=== PATIENT | male | born 1995 | race Two or more races ===

== ENCOUNTER 2018-01-10 15:53 | Emergency (ER) | payer MEDICAID, OTHER ==
[~2018-01-10] VITALS: Ht 165.1 cm; Wt 68.0 kg
[2018-01-10] MEDS ORDERED: LEVETIRACETAM INJ 500 MG in D5W 5% 100 ML IV ONE (17:00)
[2018-01-10 18:24] VITALS: BP 140/84
[2018-01-10 18:27] LABS: Basophils # (auto) 0.1 uL; Basophils % (auto) 0.5 % (0.0-2.0); Eosinophils # (auto) 0.1 uL; Eosinophils % (auto) 0.7 % (0.0-7.0); Hematocrit 50.1 % (41.0-53.0); Hemoglobin 17.2 g/dL (13.5-17.5); Lymphocytes # (auto) 0.7 uL; Lymphocytes % (auto) 4.9 % (10.0-50.0); Mean Corpuscular Hemoglobin 32.6 pg (28.0-32.0); Mean Corpuscular Hgb Conc. 34.3 g/dL (32.0-36.0); Mean Corpuscular Volume 94.8 fL (80.0-100.0); Monocytes # (auto) 0.8 uL; Monocytes % (auto) 6.1 % (0.0-12.0); Neutrophils % (auto) 87.8 % (37.0-80.0); Platelet Count (auto) 232 10^3/uL (140-450); Red Blood Cells 5.28 10^6/uL (4.5-5.90); Red Cell Distribution Width 12.4 % (11.8-14.3); White Blood Cell 13.7 10^3/uL (4.4-10.8)
[2018-01-10 18:30] LABS: Albumin 4.8 g/dL (3.4-5.0); BUN/Creatinine Ratio 10.7; Bilirubin, Total 0.4 mg/dL (0.2-1.0); Calcium 8.6 mg/dL (8.5-10.1); Potassium 3.6 mmol/L (3.5-5.1); Total Protein 8.3 g/dL (6.4-8.2)
[2018-01-10] MEDS ORDERED: ONDANSETRON HCL 4 MG/2 ML VIAL ONE (18:41)
[2018-01-10] MEDS ORDERED: ONDANSETRON ODT 4 MG TAB PO ONE (19:00)
[2018-01-10] MEDS ORDERED: ONDANSETRON HCL 4 MG/2 ML VIAL IV ONE (19:00)
== END 2018-01-10 18:48 | disposition short-term general hospital (02) ==
LOC: ER 16:01 → EDBD 16:01 → ER 18:48
DX: I62.00 Nontraumatic subdural hemorrhage, unspecified (principal); G40.909 Epilepsy, unspecified, not intractable, without status epilepticus; R42 Dizziness and giddiness; R41.82 Altered mental status, unspecified; Z86.73 Personal history of transient ischemic attack (TIA), and cerebral infarction without residual deficits
CPT/HCPCS: 36415; 70450; 80053; 85025; 93005; 96365; 96375; 99291; J1953; J2405; J7060

== ENCOUNTER 2025-01-09 21:51 | Emergency (ER) | payer MEDICAID ==
[~2025-01-09] VITALS: Ht 170.2 cm; Wt 92.5 kg
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
[2025-01-10] MEDS: ACETAMINOPHEN 325 MG TAB PO ONE (00:54)
[2025-01-10] MEDS: ONDANSETRON ODT 4 MG TAB PO ONE (00:55)
[2025-01-10 01:32] VITALS: BP 151/85; PULSE 85; RESP 16; TEMP 97.6; O2SAT 98
--- NOTE | 2025-01-10 01:45 | DVH ---
CT HEAD WITHOUT CONTRAST INDICATION: HEAD INJURY COMPARISON: None TECHNIQUE: CT of the head without intravenous contrast. RADIATION DOSE: CTDIvol: mGy, DLP: mGy*cm FINDINGS: There is no evidence of intracranial hemorrhage, acute infarct, vasogenic edema, mass effect, midlin e shift, herniation or hydrocephalus. Area of gliosis noted in right anterior-inferior frontal lobe. The ventricles, sulci and cisterns are within normal limits. The feliciano-white differentiation is intact . Visualized paranasal sinuses and mastoid air cells are clear. Soft tissues are unremarkable. Prior right-sided craniotomy; otherwise unremarkable. IMPRESSION: No acute intracranial abnormality identified.
--- NOTE | 2025-01-10 01:47 | DVH ---
EXAMINATION: XY R RIB XRAY INDICATION: RIGHT RIB PAIN COMPARISON: None TECHNIQUE: Frontal view of the chest and 4 views of the right ribs history FINDINGS: No focal consolidation, pleural effusion or significant pneumothorax. Normal cardiomediastinal silhou ette. No displaced right rib fracture. 12 right ribs IMPRESSION: No acute cardiopulmonary abnormality. No displaced right rib fracture.
--- NOTE | 2025-01-10 01:52 | DVH ---
CLINICAL HISTORY: NECK PAIN TECHNIQUE: CT exam of the cervical spine was performed without intravenous contrast. This exam was pe rformed according to our departmental dose optimization program. Up-to-date CT equipment and radiatio n dose reduction techniques are utilized as appropriate. CTDI: 24.16 DLP: 742.28 WID: COMPARISON: None FINDINGS: There is normal cervical alignment. The vertebral body heights are maintained. No acute cervical frac ture or subluxation is identified. No significant central or neural foraminal narrowing is identified . The paraspinous soft tissues are unremarkable. The lung apices are clear. There is paranasal sinus mucosal thickening. There is a dental caries within the posterior most left maxillary molar tooth. IMPRESSION: 1. No acute fracture or traumatic malalignment. 2. Dental caries within the posterior most left maxillary molar tooth. 3. Paranasal sinus mucosal thickening partially imaged which could be inflammatory
[2025-01-10] MEDS ORDERED: AMOX875T4 PO (02:05)
[2025-01-10] MEDS ORDERED: ACET500T58 PO (02:09)
[2025-01-10] MEDS ORDERED: CYCL-837 PO (02:09)
== END 2025-01-10 02:12 | disposition home or self-care (01) ==
LOC: ER 21:51
DX: S16.1XXA Strain of muscle, fascia and tendon at neck level, initial encounter (principal); S20.211A Contusion of right front wall of thorax, initial encounter; S09.8XXA Other specified injuries of head, initial encounter; K02.9 Dental caries, unspecified; Z98.890 Other specified postprocedural states; V89.2XXA Person injured in unspecified motor-vehicle accident, traffic, initial encounter; Y93.89 Activity, other specified; Y92.410 Unspecified street and highway as the place of occurrence of the external cause; Y99.8 Other external cause status
CPT/HCPCS: 70450; 71101; 72125; 99284; Q0162

== ENCOUNTER 2025-03-17 10:41 | Emergency (ER) | payer MEDICAID ==
[~2025-03-17] VITALS: Ht 175.3 cm; Wt 100.0 kg
[~2025-03-17 10:41] MED LIST: ACET500T58 PO; AMOX875T4 PO; CYCL-837 PO
--- NOTE | 2025-03-17 10:50 | ED.PDOC ---
[place]. trauma (HPI) HPI Comments 29 y/o M, BIBA, with PMHx of CVA and seizures presents to the ED for CC of s/p fall. Time Seen by MD: 10:50 Primary Care Provider: UNKNOWN Reviewed notes: Nurses Notes, Machine Maintenance Technician Notes, Medications, Allergies Allergies: Coded Allergies: NO KNOWN ALLERGIES (Unverified , 01/10/18) Home Meds Active Scripts Cyclobenzaprine Hcl (Cyclobenzaprine Hcl) 5 Mg Tab, 1 TAB PO QHSP, #14 TAB 0 Refills Prov:CALDERON GRIFFIN 01/10/25 Acetaminophen (Acetaminophen) 500 Mg Tab, 500 MG PO Q4HPRN, #30 TAB 0 Refills Prov:CALDERON GRIFFIN 01/10/25 Amoxicillin & Pot Clavulanate (Amoxicillin/Potassium Cla) 875 Mg Tab, 1 TAB PO BID for 7 Days, #14 TAB 0 Refills Prov:CALDERON GRIFFIN 01/10/25 Information Source: Patient, Emergency Med Personnel Mode of Arrival: EMS Severity: Moderate Timing: Minutes Duration: Since onset Prehospital treatment: None Location of laceration: None Mechanism: Fall Associated signs and symtoms: None Past Medical History PAST MEDICAL HISTORY: CVA, Seizures Surgical History: Denies all surgeries Family History Family History: Family hx of DM Social History Smoker: Non-Smoker Alcohol: Denies ETOH Use Drugs: Denies Drug Use Lives In: Home Constitutional: denies: chills, diaphoresis, fatigue, fever, malaise, sweats, weakness, others EENTM: denies: blurred vision, double vision, ear bleeding, ear discharge, ear drainage, ear pain, ear ringing, eye pain, eye redness, hearing loss, mouth pain, mouth swelling, nasal discharge, nose bleeding, nose congestion, nose pain, photophobia, tearing, throat pain, throat swelling, voice changes, others Respiratory: denies: cough, hemoptysis, orthopnea, SOB at rest, shortness of breath, SOB with excertion, stridor, wheezing, others Cardiovascular: denies: chest pain, dizzy spells, diaphoresis, Dyspnea on exertion, edema, irregular heart beat, left arm pain, lightheadedness, palpitations, PND, syncope, others Gastrointestinal: denies: abdomen distended, abdominal pain, blood streaked bowels, constipated, diarrhea, dysphagia, difficulty swallowing, hematemesis, melena, nausea, poor appetite, poor fluid intake, rectal bleeding, rectal pain, vomiting, others Genitourinary: denies: burning, dysuria, flank pain, frequency, hematuria, incontinence, penile discharge, penile sore, pain, testicle pain, testicle swelling, urgency, others Neurological: denies: dizziness, fainting, headache, left sided numbness, left sided weakness, numbness, paresthesia, pre-existing deficit, right sided numbness, right sided weakness, seizure, speech problems, tingling, tremors, weakness, others Musculoskeletal: denies: back pain, gout, joint pain, joint swelling, muscle pain, muscle stiffness, neck pain, others Integumetry: denies: bruises, change in color, change in hair/nails, dryness, laceration, lesions, lumps, rash, wounds, others Allergic/Immunocompromised: denies: Difficulty Healing, Frequent Infections, Hives, Itching, others Hematologic/Lymphatic: denies: anemia, blood clots, easy bleeding, easy bruising, swollen glands, others Endocrine: denies: excessive hunger, excessive sweating, excessive thirst, excessive urination, flushing, intolerance to cold, intolerance to heat, unexplained weight gain, unexplained weight loss, others Psychiatric: denies: anxiety, bipolar disorder, depression, hopeless, panic disorder, schizophrenia, sleepless, suicidal, others All Other Systems: Reviewed and Negative Was a procedure done? Was a procedure done?: No Differential Diagnosis Multiple Trauma: Fractures, Contusion, Hematoma Neck Injury: Cervical Sprain, Cervical Strain Time of 1ST Reevaluation: 11:20 Reevaluation 1ST: Unchanged Patient Education/Counseling: Diagnosis, Treatment Family Education/Counseling: No Family Present Critical Care Note Critical Care Time?: No Stability Stability form required: No Heart Score Heart Score: Heart Score Response (Comments) Value History N/A 0 EKG N/A 0 Age N/A 0 Risk Factors N/A 0 Troponin N/A 0 Total 0 I personally scribed for MICAELA COBOS MD ([email or web address]) on 03/17/25 at 10:50. Electronically submitted by Alma Duff ([email or web address]). I personally scribed for MICAELA COBOS MD ([email or web address]) on 03/17/25 at 10:53. Electronically submitted by Alma Duff ([email or web address]). MICAELA COBOS MD Mar 17, 2025 10:50
--- NOTE | 2025-03-17 11:11 | ED.PDOC ---
Musculoskeletal HPI Comments 29y M who presents to the ED via EMS for chief complaint of hip pain. Pt states he was fishing at 0300 this AM and states he was walking down a hill and states he fell and slipped x 2 in his R hip to help break his fall. Pt states he did his his head during slip and fall but no associated loss of consciousness. Pt states he was able to ambulate and went home. Pt states he took nap and after waking, he was in pain and unable to get out of bed and called EMS. Pt now in the ED, has bilateral hip pain with associated R knee pain. Pt otherwise states he is in severe pain and has noted pain with any movement. Pt otherwise is ax0x4 and denies any other symptoms at this time. 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, Medications, Allergies Allergies: Coded Allergies: NO KNOWN ALLERGIES (Unverified , 01/10/18) Home Meds Active Scripts Cyclobenzaprine Hcl (Cyclobenzaprine Hcl) 5 Mg Tab, 1 TAB PO QHSP, #14 TAB 0 Refills Prov:CALDERON GRIFFIN 01/10/25 Acetaminophen (Acetaminophen) 500 Mg Tab, 500 MG PO Q4HPRN, #30 TAB 0 Refills Prov:CALDERON GRIFFIN 01/10/25 Amoxicillin & Pot Clavulanate (Amoxicillin/Potassium Cla) 875 Mg Tab, 1 TAB PO BID for 7 Days, #14 TAB 0 Refills Prov:CALDERON GRIFFIN 01/10/25 Information Source: Patient, Emergency Med Personnel Mode of Arrival: EMS Past Medical History PAST MEDICAL HISTORY: CVA, Seizures Surgical History: Denies all surgeries Family History Family History: Family hx of DM Social History Smoker: Non-Smoker Alcohol: Denies ETOH Use Drugs: Denies Drug Use Lives In: Home Constitutional: denies: chills, diaphoresis, fatigue, fever, malaise, sweats, weakness, others EENTM: denies: blurred vision, double vision, ear bleeding, ear discharge, ear drainage, ear pain, ear ringing, eye pain, eye redness, hearing loss, mouth pain, mouth swelling, nasal discharge, nose bleeding, nose congestion, nose pain, photophobia, tearing, throat pain, throat swelling, voice changes, others Respiratory: denies: cough, hemoptysis, orthopnea, SOB at rest, shortness of breath, SOB with excertion, stridor, wheezing, others Cardiovascular: denies: chest pain, dizzy spells, diaphoresis, Dyspnea on exertion, edema, irregular heart beat, left arm pain, lightheadedness, palpitations, PND, syncope, others Gastrointestinal: denies: abdomen distended, abdominal pain, blood streaked bowels, constipated, diarrhea, dysphagia, difficulty swallowing, hematemesis, melena, nausea, poor appetite, poor fluid intake, rectal bleeding, rectal pain, vomiting, others Genitourinary: denies: burning, dysuria, flank pain, frequency, hematuria, incontinence, penile discharge, penile sore, pain, testicle pain, testicle swelling, urgency, others Neurological: denies: dizziness, fainting, headache, left sided numbness, left sided weakness, numbness, paresthesia, pre-existing deficit, right sided numbness, right sided weakness, seizure, speech problems, tingling, tremors, weakness, others Musculoskeletal: reports: joint pain (R knee and bilateral hip); denies: back pain, gout, joint swelling, muscle pain, muscle stiffness, neck pain, others Integumetry: denies: bruises, change in color, change in hair/nails, dryness, laceration, lesions, lumps, rash, wounds, others Allergic/Immunocompromised: denies: Difficulty Healing, Frequent Infections, Hives, Itching, others Hematologic/Lymphatic: denies: anemia, blood clots, easy bleeding, easy bruising, swollen glands, others Endocrine: denies: excessive hunger, excessive sweating, excessive thirst, excessive urination, flushing, intolerance to cold, intolerance to heat, unexplained weight gain, unexplained weight loss, others Psychiatric: denies: anxiety, bipolar disorder, depression, hopeless, panic disorder, schizophrenia, sleepless, suicidal, others All Other Systems: Reviewed and Negative Physical Exam General Appearance: Mild Distress HEENT: Normal ENT Inspection, Pharynx Normal, TMs Normal Neck: Full Range of Motion, Non-Tender, Normal, Normal Inspection Respiratory: Chest Non-Tender, Lungs Clear, No Accessory Muscle Use, No Respiratory Distress, Normal Breath Sounds Cardiovascular: No Edema, No JVD, No Murmur, No Gallop, Normal Peripheral Pulses, Regular Rate/Rhythm Breast Exam: Deferred Gastrointestinal: No Organomegaly, Non Tender, No Pulsatile Mass, Normal Bowel Sounds, Soft Genitalia: Deferred Pelvic: Deferred Rectal: Deferred Extremities: Decreased range of motion, No pedal edema Musculoskeletal : Apperance: Normal 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 Was a procedure done?: No Differential Diagnosis EXT Differential Diagnosis: Fracture, Dislocation, Contusion, Strain Other Differential Diagnosis musculoskeletal pain, fracture, contusion, lumbar radiculopathy, X-Ray, Labs, Meds, VS Vital Signs Date Time Temp Pulse Resp B/P (MAP) Pulse Ox O2 Delivery O2 Flow Rate FiO2 03/17/25 11:51 95 24 97 Room Air* 0 21 03/17/25 11:51 98.3 95 24 132/94 (107) 97 98.3 03/17/25 10:54 98.7 84 18 134/88 (103) 96 98.7 Current Medications Medications (Trade) Dose Ordered Sig/Ronda Route Start Time Stop Time Status Last Admin Acetaminophen/ Hydrocodone Bitart ([place] 5/325MG Tab) 1 tab ONCE ONCE PO 03/17/25 11:30 03/17/25 11:31 DC 03/17/25 11:45 [place] [id number] Ph: [phone] DIAGNOSTIC IMAGING Diagnostic Imaging Report : [id number] Signed PATIENT: JOELLEN SMILEYCCT: [id number] UNIT: [id number] : 1995 LOC: ER ROOM / BED: / AGE / SEX: 29 / M ADM STATUS: REG ER SERVICE [id number] ORDERING PHYSICIAN: QUYNH LI MD PROCEDURE(s): LUMB2 - LUMBAR SPINE 3 VIEW REASON: fall ORDER NUMBER(s): [id number], ACCESSION NUMBER(s): [id number] INDICATION: fall COMPARISON: None TECHNIQUE: 2 views of the lumbar spine were obtained. FINDINGS: The lumbar vertebral alignment is normal. The intervertebral disc spaces are well-maintained. No significant facet arthropathy is noted. No acute fracture, vertebral compression deformity or aggressive osseous l esions. The paravertebral soft tissues are grossly unremarkable. IMPRESSION: No acute fracture. ATED BY: ERIK LUCAS MD DICTATED DATE/TIME: 03/17/251203 SIGNED BY: ERIK LUCAS MD SIGNED DATE/TIME: 03/17/251203 CC: [place] [id number] Ph: [phone] DIAGNOSTIC IMAGING Diagnostic Imaging Report : [id number] Signed PATIENT: JOELLEN SMILEYCCT: [id number] UNIT: [id number] : 1995 LOC: ER ROOM / BED: / AGE / SEX: 29 / M ADM STATUS: REG ER SERVICE 1118 ORDERING PHYSICIAN: QUYNH LI MD PROCEDURE(s): RHIP - R HIP COMPLETE XRAY REASON: fall ORDER NUMBER(s): [id number], ACCESSION NUMBER(s): [id number] EXAM: XY R HIP COMPLETE XRAY CLINICAL INDICATION: fall TECHNIQUE: XY R HIP COMPLETE XRAY Comparison: None FINDINGS/IMPRESSION: There is no evidence of acute fracture or dislocation. The visualized joint space is well maintained. The alignment is anatomical. There is no radiopaque foreign body. ATED BY: CHUY PALUMBO MD DICTATED DATE/TIME: 03/17/251204 SIGNED BY: CHUY PALUMBO MD SIGNED DATE/TIME: 03/17/251204 CC: Time of 1ST Reevaluation: 12:35 Reevaluation 1ST: Improved Patient Education/Counseling: Diagnosis, Treatment Family Education/Counseling: No Family Present Departure 1 Departure Time of Disposition: 12:35 (Patient's x-rays are benign. he likely strained his hip. Will discharge home with outpatient follow up.) Impression: Primary Impression: Hip strain Qualified Codes: S76.011A - Strain of muscle, fascia and tendon of right hip, initial encounter Disposition: HOME / SELF CARE / HOMELESS Condition: Stable Referrals: XOCHILT PALUMBO MD Additional Instructions: You likely sprained your hip. Your x-rays were benign. You were referred to orthopedics. For pain you can take the followinam: Ibuprofen 400mg with food Noon: Acetaminophen 1000mg 4pm: Ibuprofen 400mg with food 8pm: Acetaminophen 1000mg You should follow up with your regular doctor within one week to ensure you are doing better. If your symptoms worsen or you have any other concerns then please return to the ER. Discharged With: Self Critical Care Note Critical Care Time?: No Stability Stability form required: No Heart Score Heart Score: Heart Score Response (Comments) Value History N/A 0 EKG N/A 0 Age N/A 0 Risk Factors N/A 0 Troponin N/A 0 Total 0 I personally scribed for QUYNH LI MD ([email or web address]) on 03/17/25 at 11:11. Electronically submitted by Eden Nolasco ([email or web address]). I personally scribed for QUYNH LI MD ([email or web address]) on 03/17/25 at 12:15. Electronically submitted by Eden Nolasco ([email or web address]). QUYNH LI MD Mar 17, 2025 11:11
[2025-03-17] MEDS: HYDROcodone-ACET 5/325MG TAB PO ONE (11:45)
[2025-03-17 11:51] VITALS: PULSE 95; RESP 24; O2SAT 97
--- NOTE | 2025-03-17 12:07 | DVH ---
INDICATION: fall COMPARISON: None TECHNIQUE: 2 views of the lumbar spine were obtained. FINDINGS: The lumbar vertebral alignment is normal. The intervertebral disc spaces are well-maintained. No significant facet arthropathy is noted. No acute fracture, vertebral compression deformity or aggressive osseous lesions. The paravertebral soft tissues are grossly unremarkable. IMPRESSION: No acute fracture.
--- NOTE | 2025-03-17 12:08 | DVH ---
EXAM: XY R HIP COMPLETE XRAY CLINICAL INDICATION: fall TECHNIQUE: XY R HIP COMPLETE XRAY Comparison: None FINDINGS/IMPRESSION: There is no evidence of acute fracture or dislocation. The visualized joint space is well maintained. The alignment is anatomical. There is no radiopaque foreign body.
[2025-03-17 13:05] VITALS: BP 143/93; PULSE 80; RESP 16; TEMP 98.3; O2SAT 95
== END 2025-03-17 13:06 | disposition home or self-care (01) ==
LOC: ER 10:41 → EDBD 10:41 → EDUNIT# 10:41 → ER 13:06
DX: S76.011A Strain of muscle, fascia and tendon of right hip, initial encounter (principal); Z86.73 Personal history of transient ischemic attack (TIA), and cerebral infarction without residual deficits; W01.0XXA Fall on same level from slipping, tripping and stumbling without subsequent striking against object, initial encounter; Y93.01 Activity, walking, marching and hiking; Y92.89 Other specified places as the place of occurrence of the external cause; Y99.8 Other external cause status
CPT/HCPCS: 72100; 73502